=== PATIENT | female | born 1950 | race Caucasian/White ===

== ENCOUNTER → 2017-04-15 | Outpatient (CLI) | payer OTHER | LOC: CIMAGING 14:35 | PROVIDERS: ATTEND Family Medicine | DX: Z12.31 Encounter for screening mammogram for malignant neoplasm of breast (principal); Z85.3 Personal history of malignant neoplasm of breast; Z80.3 Family history of malignant neoplasm of breast ==

== ENCOUNTER 2017-06-09 17:46 | Emergency (ER) | payer OTHER ==
[2017-06-09 17:57] VITALS: BP 160/92; PULSE 93; RESP 20; TEMP 97.2; O2SAT 96
[2017-06-09] MEDS ORDERED: IBUPROFEN 600 MG TAB PO ONE (17:57)
[2017-06-09] MEDS ORDERED: AZITHROMYCIN 250 MG TAB PO ONE (18:08)
--- NOTE | 2017-06-09 18:10 | EDPHY ---
H & P Time Seen by Provider: 06/09/17 18:01 HPI/ROS: This patient complains of severe right ear pain. She explains that she had URI symptoms 3 weeks ago that resolved with exception of minimal persistent nasal congestion and onset of ear ache over the past 72 hr. She attributes this in part to less sleep caring for her mother who is postop from breast surgery that occurred on Friday 3 days ago. She reports that she had mild pressure in the ear prior to blowing her dose and then developed severe pain. She blew her nose shortly prior to arrival. She took Tylenol prior to arrival and notes no other exacerbating factors with minimal improvement from Tylenol. ROS: Constitutional: No fevers. Mild fatigue she attributes to less sleep for caring for her mother HEENT: No sore throat. No left ear pain. Pulmonary: Currently no shortness of breath. Rare cough. No hemoptysis. No pleuritic pain. Cardiovascular: No complaints new line integumentary: No skin rash Neuro: No generalized headache or confusion. 5 point ROS is otherwise negative. Past Medical/Surgical History: Otherwise healthy except for chronic back pain for which she takes Vicodin. Smoking Status: Former smoker Physical Exam: Physical Exam Vital signs are normal. General: No acute distress HEENT: Nose: Clear discharge bilaterally. No sinus tenderness to percussion. Ears: Right external canals clear right TM is dull and erythematous with purulent effusion. No evidence of rupture is appreciated on exam. There is no purulence the external canal. Left external canal and TM are clear Oropharynx : No erythema or exudates. No dysphonia. No drooling or stridor. Eyes: Pupils equal and react to light. Extraocular motions are intact. Neck: Supple with no meningismus. No lymphadenopathy Lungs: Clear to auscultation bilaterally with no rales, rhonchi or wheeze. No respiratory distress. Cardiac: Regular rate and rhythm with no murmur gallop or rub Skin: No rash or pallor. Neuro: Alert with no focal deficits noted. Constitutional: Initial Vital Signs Temperature (C) 36.2 C 06/09/17 17:56 Heart Rate 93 06/09/17 17:56 Respiratory Rate 20 06/09/17 17:56 Blood Pressure 160/92 H 06/09/17 17:56 O2 Sat (%) 96 06/09/17 17:56 O2 Delivery Mode Room Air Allergies/Adverse Reactions: No Known Allergies Allergy (Verified 06/09/17 17:55) Home Medications: Medication Instructions Recorded ALPRAZolam [Xanax 0.25 MG (*)] 04/02/15 Alendronate Sodium 04/02/15 Anastrozole [Arimidex 1 mg (*)] 04/02/15 Hydrocodone/Acetaminophen [Vicodin 04/02/15 5-300 mg Tablet] Omeprazole [Prilosec 20 mg] 04/02/15 buPROPion [Wellbutrin 100mg (*)] 04/02/15 Azithromycin [Zithromax] 250 mg PO DAILY #4 tab 06/09/17 MDM/Departure - MDM Medications Given: Discontinued Medications Azithromycin (Zithromax) 500 mg PO EDNOW ONE PRN Reason: Protocol Stop: 06/09/17 18:09 Last Admin: 06/09/17 18:19 Dose: 500 mg Ibuprofen (Motrin) 600 mg PO EDNOW ONE Stop: 06/09/17 17:58 Last Admin: 06/09/17 18:00 Dose: 600 mg ED Course/Re-evaluation: Discussion: Patient presents with otitis media without clinical evidence of TELEMEDICINE PHYSICIAN infection, TM rupture or other complicating factors. I counseled this patient regarding otitis media answered all her questions prior to discharge home. She is treated with 1st dose of Zithromax 500 mg p.o.. In addition she was treated with a dose of ibuprofen for analgesia. - Depart Disposition: Home, Routine, Self-Care Clinical Impression: Otitis media Qualifiers: Otitis media type: suppurative Chronicity: acute Laterality: right Recurrence: not specified as recurrent Spontaneous tympanic membrane rupture: without spontaneous rupture Qualified Code(s): H66.001 - Acute suppurative otitis media without spontaneous rupture of ear drum, right ear Condition: Good Instructions: Ear Infection (ED) Additional Instructions: Diagnosis: Otitis media Plan: Continue ibuprofen and Tylenol or Vicodin if needed for pain that prevents sleep. No driving, alcohol work on year Vicodin Zithromax antibiotic as prescribed Avoid blowing your nose until your symptoms resolve Return for any significant worsening despite treatment plan Follow up with primary care physician if you're not having resolution of your symptoms over the next 5-7 days with the treatment plan. Prescriptions: Azithromycin [Zithromax] 250 mg PO DAILY #4 tab Referrals: Willow Boyer MD [Primary Care Provider] - As per Instructions
== END 2017-06-09 18:20 | disposition home or self-care (01) ==
LOC: CED 17:46
DX: H66.001 Acute suppurative otitis media without spontaneous rupture of ear drum, right ear (principal); Z87.891 Personal history of nicotine dependence

== ENCOUNTER → 2017-09-16 | Outpatient (CLI) | payer OTHER | LOC: FIMAGING 11:35 | PROVIDERS: ATTEND Internal Medicine Hematology & Oncology | DX: Z13.820 Encounter for screening for osteoporosis (principal); M81.0 Age-related osteoporosis without current pathological fracture; Z78.0 Asymptomatic menopausal state ==

== ENCOUNTER → 2018-04-16 | Outpatient (CLI) | payer OTHER | LOC: CIMAGING 09:31 | PROVIDERS: ATTEND Internal Medicine Hematology & Oncology | DX: Z12.31 Encounter for screening mammogram for malignant neoplasm of breast (principal) ==

== ENCOUNTER 2018-04-23 00:08 | Emergency (ER) | payer OTHER ==
[2018-04-23] MEDS ORDERED: NS 1,000 ML IV ONE (00:22)
--- NOTE | 2018-04-23 00:38 | EDPHY ---
H & P Stated Complaint: Accidentally took 8 OTC Dietary Supplement Time Seen by Provider: 04/23/18 00:21 HPI/ROS: This patient ingested excess potassium tablets. She called poison Control was instructed to come the emergency department for evaluation. She explains that she started taking [id number] supplemental potassium for leg cramps recently and was packing for [employer] while sleepy. In her sleepy state she swallowed a potassium tablets while taking or other nighttime vitamins. The potassium is [id number] potassium gluconate 99 mg per calf foot a quitting to 2.53 mEq per capsule. Given the 8 ingested she had a total of 20.2 for mEq by my calculations. The ingestion occurred at 11:30 p.m., approximately 45 min prior to arrival here in our emergency department by private vehicle. She denies any acute symptoms. ROS: Constitutional: No complaints Cardiovascular: No heart palpitations or lightheadedness. No chest pain. Integumentary: No diaphoresis Neuro: No muscle spasms, tremors or confusion. 10 point review of symptoms is performed and otherwise negative with exception of pertinent positives and negatives listed in HPI and ROS Source: Patient - Personal History Current Tetanus/Diphtheria Vaccine: Yes Current Tetanus Diphtheria and Acellular Pertussis (TDAP): Yes Tetanus Vaccine Date: 2015 - Medical/Surgical History Hx Asthma: No Hx Chronic Respiratory Disease: No Hx Diabetes: No Hx Cardiac Disease: No Hx Renal Disease: No Hx Cirrhosis: No Hx Alcoholism: No Hx HIV/AIDS: No Hx Splenectomy or Spleen Trauma: No Other PMH: C-sections, breast cancer with lumpectomy, chronic back pain, cataract surgery - Family History Significant Family History: No pertinent family hx - Social History Smoking Status: Former smoker Alcohol Use: Occasionally Drug Use: None - Physical Exam Exam: General Appearance: Alert, no distress. Eyes: Pupils equal and round no pallor or injection. ENT, Mouth: Mucous membranes moist. Respiratory: There are no retractions, lungs are clear to auscultation. Cardiovascular: Regular rate and rhythm. Gastrointestinal: Abdomen is soft and nontender, no masses, bowel sounds normal. Neurological: GCS 15 Skin: Warm and dry, no rashes. Musculoskeletal: Neck is supple nontender. Extremities are symmetrical, full range of motion. Psychiatric: Mood and affect are normal DIFFERENTIAL DIAGNOSIS: After history and physical exam differential diagnosis was considered for inadvertent potassium overdose, other metabolic abnormalities. Constitutional: Initial Vital Signs Temperature (C) 36.6 C 04/23/18 00:21 Heart Rate 96 04/23/18 00:21 Respiratory Rate 16 04/23/18 00:21 Blood Pressure 148/90 H 04/23/18 00:21 O2 Sat (%) 96 04/23/18 00:21 O2 Delivery Mode Room Air Allergies/Adverse Reactions: No Known Allergies Allergy (Verified 04/23/18 00:12) Home Medications: Medication Instructions Recorded ALPRAZolam [Xanax 0.25 MG (*)] 04/02/15 Alendronate Sodium 04/02/15 Anastrozole [Arimidex 1 mg (*)] 04/02/15 Hydrocodone/Acetaminophen [Vicodin 04/02/15 5-300 mg Tablet] Omeprazole [Prilosec 20 mg] 04/02/15 buPROPion [Wellbutrin 100mg (*)] 04/02/15 Otc Potassium 04/23/18 Medical Decision Making ED Course/Re-evaluation: knot cutter IV normal saline bolus Initial potassium is 3.3. According to my calculations for total ingestion was 20 mEq of potassium. I do not anticipate this being a true potassium emergency given the amount ingested but will plan to observe the patient on the monitor and repeat potassium couple hours. With estimated absorption time of 30-60 minutes we should see a full dose potassium concentration prior to discharge. If it is still within normal limits will discharge her safely home. After 2 hr, patient remained stable on the monitor. She had only single L saline bolus and repeat potassium is 4.1-still within normal limits. We advised her to avoid taking supplemental potassium for leg cramps and encouraged her to follow up with Dr. Boyer for suggestions regarding her leg cramps-use of magnesium or other medications that are safer - Data Points Laboratory Results: 04/23/18 04/23/18 00:49 00:45 POC Hgb 12.6 gm/dL gm/dL (12.6-16.3) POC Hct 37 % L % (38-47) POC Sodium 140 mEq/L mEq/L 141 mEq/L mEq/L (135-145) (135-145) POC Potassium 3.3 mEq/L mEq/L 3.2 mEq/L L mEq/L (3.3-5.0) (3.3-5.0) POC Chloride 102 mEq/L mEq/L 104.0 mEq/L mEq/L (97-110) (97-110) POC Total CO2 25 mEq/L mEq/L (22-31) POC BUN 12 mg/dL mg/dL 11 mg/dL mg/dL (7-23) (7-23) POC Creatinine 0.7 mg/dL mg/dL 0.9 mg/dL mg/dL (0.6-1.0) (0.6-1.0) POC Glucose 138 mg/dL H mg/dL 135 mg/dL H mg/dL (70-100) (70-100) POC Calcium 9.4 mg/dL mg/dL (8.5-10.4) Medications Given: Discontinued Medications Sodium Chloride (Ns) 1,000 mls @ 0 mls/hr IV EDNOW ONE; Wide Open PRN Reason: Protocol Stop: 04/23/18 00:23 Last Admin: 04/23/18 00:35 Dose: 1,000 mls Point of Care Test Results: Chemistry 04/23/18 04/23/18 00:49 00:45 POC Sodium 140 mEq/L mEq/L 141 mEq/L mEq/L (135-145) (135-145) POC Potassium 3.3 mEq/L mEq/L 3.2 mEq/L L mEq/L (3.3-5.0) (3.3-5.0) POC Chloride 102 mEq/L mEq/L 104.0 mEq/L mEq/L (97-110) (97-110) POC Total CO2 25 mEq/L mEq/L (22-31) POC BUN 12 mg/dL mg/dL 11 mg/dL mg/dL (7-23) (7-23) POC Creatinine 0.7 mg/dL mg/dL 0.9 mg/dL mg/dL (0.6-1.0) (0.6-1.0) POC Glucose 138 mg/dL H mg/dL 135 mg/dL H mg/dL (70-100) (70-100) POC Calcium 9.4 mg/dL mg/dL (8.5-10.4) ISTAT H&H 04/23/18 00:49 POC Hgb 12.6 gm/dL gm/dL (12.6-16.3) POC Hct 37 % L % (38-47) Departure - Departure Disposition: Home, Routine, Self-Care Clinical Impression: Potassium overdose Condition: Good Instructions: Potassium Supplement (By mouth) Additional Instructions: Diagnosis: Potassium overdose Plan: Hold off on taking supplemental potassium as you have a normal potassium level baseline. Follow up with her primary care physician for vice regarding leg cramps. Return emergency department if he developed any heart palpitations, lightheadedness or other concerns. Referrals: Willow Boyer MD [Medical Doctor] - As per Instructions
[2018-04-23 02:53] VITALS: BP 109/75
--- NOTE | 2018-04-26 14:30 | CPEKG ---
Test Reason : OPEN Blood Pressure : / mmHG Vent. Rate : 088 BPM Atrial Rate : 088 BPM P-R Int : 190 ms QRS Dur : 091 ms QT Int : 368 ms P-R-T Axes : 039 062 044 degrees QTc Int : 446 ms Sinus rhythm Confirmed by Gene Mueller ([id number]) on 04/26/2018 2:30:29 PM Referred By: Confirmed By:Gene Mueller
== END 2018-04-23 02:40 | disposition home or self-care (01) ==
LOC: CED 00:08
DX: T50.3X1A Poisoning by electrolytic, caloric and water-balance agents, accidental (unintentional), initial encounter (principal); E86.9 Volume depletion, unspecified
CPT/HCPCS: 80048-ER; 82435-PO; 82565-PO; 82947-PO; 84132-PO; 84295-PO; 84520-PO; 85014-ER; 96360-ER; 99284-ER

== ENCOUNTER 2018-06-16 07:54 | Emergency (ER) | payer OTHER ==
[2018-06-16] MEDS ORDERED: IPRATROPIUM/ALBUTEROL 3 ML DEYVIAL IH ONE (08:12)
[2018-06-16] MEDS ORDERED: NS 1,000 ML IV ONE (08:15)
--- NOTE | 2018-06-16 08:19 | EDPHY ---
H & P Stated Complaint: c/o flu like s/s since friday Time Seen by Provider: 06/16/18 08:00 HPI/ROS: Chief Complaint: Cough, fever, malaise HPI: 68-year-old woman presenting with 2 days of cough, fever, general malaise. She was exposed to influenza in her daughter and grandson. Her mother was admitted to the hospital 2 days ago with pneumonia. She has had fevers and chills for the last 2 days, body aches, cough productive of yellowish sputum. No shortness of breath. No chest pain. No nausea or vomiting. No diarrhea or constipation. She has been taking Tylenol and Motrin with minimal relief. ROS: 10 systems were reviewed and were negative except those elements noted in the HPI. PMH: Uterine prolapse Social History: Remote history of smoking, no alcohol, no recreational drug use Family History: non-contributory Physical Exam: Gen: Awake, Alert, No Distress HEENT: Nose: no rhinorrhea Eyes: PERRLA, EOMI Mouth: Moist mucosa Neck: Supple, no JVD Chest: nontender, diffuse expiratory wheezing, no focal rales or rhonchi Heart: S1, S2 normal, no murmur, tachycardic Abd: Soft, non-tender, no guarding Back: no CVA tenderness, no midline tenderness Ext: no edema, non-tender Skin: no rash Neuro: CN II-XII intact, Sensation grossly intact, Strength 5/5 in bilateral upper and lower extremities - Personal History Current Tetanus Diphtheria and Acellular Pertussis (TDAP): Yes Tetanus Vaccine Date: 2015 - Medical/Surgical History Hx Asthma: No Hx Chronic Respiratory Disease: No Hx Diabetes: No Hx Cardiac Disease: No Hx Renal Disease: No Hx Cirrhosis: No Hx Alcoholism: No Hx HIV/AIDS: No Hx Splenectomy or Spleen Trauma: No Other PMH: C-sections, breast cancer with lumpectomy, chronic back pain, cataract surgery - Social History Smoking Status: Former smoker Constitutional: Initial Vital Signs Temperature (C) 37.8 C 06/16/18 08:03 Heart Rate 111 H 06/16/18 08:03 Respiratory Rate 20 06/16/18 08:03 Blood Pressure 164/90 H 06/16/18 08:03 O2 Sat (%) 94 06/16/18 08:03 O2 Delivery Mode Room Air Allergies/Adverse Reactions: No Known Allergies Allergy (Verified 04/23/18 00:12) Home Medications: Medication Instructions Recorded ALPRAZolam [Xanax 0.25 MG (*)] 04/02/15 Alendronate Sodium 04/02/15 Anastrozole [Arimidex 1 mg (*)] 04/02/15 Hydrocodone/Acetaminophen [Vicodin 04/02/15 5-300 mg Tablet] Omeprazole [Prilosec 20 mg] 04/02/15 buPROPion [Wellbutrin 100mg (*)] 04/02/15 Otc Potassium 04/23/18 Oseltamivir Phosphate [Tamiflu 75 75 mg PO BID #10 cap 06/16/18 mg (*)] Medical Decision Making - Diagnostics Imaging Results: Imaging Impressions Chest X-Ray 06/16/18 08:11 Impression: 1. Airways disease 2. Likely a small area of atelectasis or scar at the right lung base 3. No evidence for metastatic breast cancer 4. Old granulomatous disease. ED Course/Re-evaluation: Patient is flu A positive. Given her age she meet CDC criteria for Tamiflu. She would like to take this. Is been prescribed. Lungs are improved after DuoNeb treatment. Oxygen saturations are good. She has gotten a L fluid. Plan will be for discharge with follow-up with primary care physician. - Data Points Laboratory Results: 06/16/18 08:29 POC Sodium 137 mEq/L mEq/L (135-145) POC Potassium 3.7 mEq/L mEq/L (3.3-5.0) POC Chloride 98.0 mEq/L mEq/L (97-110) POC Total CO2 24 mEq/L mEq/L (22-31) POC BUN 5 mg/dL L mg/dL (7-23) POC Creatinine 0.5 mg/dL L mg/dL (0.6-1.0) POC Glucose 123 mg/dL H mg/dL (70-100) POC Calcium 9.9 mg/dL mg/dL (8.5-10.4) Medications Given: Discontinued Medications Albuterol/Ipratropium (Duoneb) 3 ml IH EDNOW ONE Stop: 06/16/18 08:13 Last Admin: 06/16/18 08:33 Dose: 3 ml Sodium Chloride (Ns) 1,000 mls @ 0 mls/hr IV ONCE ONE; Wide Open PRN Reason: Protocol Stop: 06/16/18 08:16 Last Admin: 06/16/18 08:33 Dose: 1,000 mls Point of Care Test Results: CBC CBC Collection Date 06/16/18 CBC Collection Time 08:25 WBC 11.37 RBC 4.65 HGB 14.2 HCT 41.5 PLT 213 Neut # 8.45 Neut 74.2 LYMPH # 1.8 LYMPH 15.8 MCV 89.2 Chemistry 06/16/18 08:29 POC Sodium 137 mEq/L mEq/L (135-145) POC Potassium 3.7 mEq/L mEq/L (3.3-5.0) POC Chloride 98.0 mEq/L mEq/L (97-110) POC Total CO2 24 mEq/L mEq/L (22-31) POC BUN 5 mg/dL L mg/dL (7-23) POC Creatinine 0.5 mg/dL L mg/dL (0.6-1.0) POC Glucose 123 mg/dL H mg/dL (70-100) POC Calcium 9.9 mg/dL mg/dL (8.5-10.4) Influenza PCR Flu Nasal Swab Collection Date 06/16/18 Flu Nasal Swab Collection Time 08:20 Influenza A Result Detected Influenza B Result Not Detected Departure - Departure Disposition: Home, Routine, Self-Care Clinical Impression: Influenza A Condition: Good Instructions: Influenza (ED) Additional Instructions: Please take your full course of Tamiflu. You may use the albuterol inhaler 2 puffs every 2-4 hours as needed for cough or wheeze. Alternate acetaminophen (1000 mg) with ibuprofen (400 mg) every 4 hours as needed for fevers, chills, aches or pain. Follow up with primary care physician in 3-4 days if symptoms are not improving. Return emergency depart for worsening cough, uncontrolled fevers or chills, uncontrolled vomiting, worsening shortness of breath, or any other concerns. Prescriptions: Oseltamivir Phosphate [Tamiflu 75 mg (*)] 75 mg PO BID #10 cap
[2018-06-16] MEDS ORDERED: ALBUTEROL INH PREPACK MDI TAKEHOME ONE (09:05)
[2018-06-16] MEDS ORDERED: OSELTAMIVIR PHOSPHATE 75 MG CAP PO ONE (09:05)
[2018-06-16] MEDS ORDERED: IBUPROFEN 600 MG TAB PO ONE (09:44)
[2018-06-16 09:52] VITALS: BP 147/88
== END 2018-06-16 09:50 | disposition home or self-care (01) ==
LOC: CED 07:54
DX: J10.1 Influenza due to other identified influenza virus with other respiratory manifestations (principal); E86.9 Volume depletion, unspecified
CPT/HCPCS: 71046-PO; 80048-ER; 96360-ER; 99284-ER